=== PATIENT | male | born 1970 | race African-American/Black ===

== ENCOUNTER 2024-09-20 16:16 | Emergency (ER) | payer MEDICAID, OTHER ==
[~2024-09-20] VITALS: Ht 188 cm; Wt 69.3 kg
--- NOTE | 2024-09-20 16:41 | ED.PDOC ---
GI ASSESSMENT HPI Comments A 54 YEAR OLD MALE PRESENTS TO THE ED WITH COMPLAINT OF CONSTIPATION AND ABDOMINAL PAIN. PATIENT STATES HE HAS BEEN EXPERIENCING CONSTIPATION/SMALL AND HARD BOWEL MOVEMENTS WITH OCCASIONAL ABDOMINAL PAIN A RESULT FOR THE PAST 1 WEEK. PATIENT REPORTS HE HAS BEEN TAKING OTC LAXATIVES WITH ONLY MINIMAL IMPROVEMENT. PATIENT DENIES DYSURIA, HEMATURIA, FLANK PAIN, FEVER, CHILLS, SHORTNESS OF BREATH, CHEST PAIN, NAUSEA, VOMITING, HEADACHE, OR OTHER COMPLAINTS. NO OTHER SYMPTOMS OR MODIFYING FACTORS AT THIS TIME. PATIENT IS ALERT, ORIENTED X 4, AND HAS STEADY GAIT. Chief Complaint: CONSTIPATION Time Seen by MD: 17:10 Reviewed Notes: Nurses Notes, Medications, Allergies Allergies: Coded Allergies: NO KNOWN ALLERGIES (Unverified , 09/20/24) Home Meds Active Scripts Losartan Potassium (Losartan Potassium) 50 Mg Tab, 1 TAB PO DAILY for 14 Days, #14 TAB Prov:PHILLIP PRITCHETT 09/20/24 Dicyclomine Hcl (Dicyclomine Hcl) 20 Mg Tab, 1 TAB PO TID, #30 TAB 1 Refill Prov:OLIVER CONTRERAS 09/20/24 Lactulose (Lactulose) 10 Gm/15 Ml Charmaine, 30 ML PO BID, #300 ML Prov:OLIVER CONTRERAS 09/20/24 Information Source: Patient Mode of Arrival: Ambulatory Timing: Days Duration: Since onset, Days Prehospital treatment: None Quality: Aching, Cramping, Colicky Vomitus: None Stool: Minimal Severity: Moderate Recent: None Recent Hx of: None Pain Location: LUQ, LLQ Modifying Factors: Nothing Associated sign and symptoms: Constipation, Abdominal Pain Past Medical History PAST MEDICAL HISTORY: HTN Surgical History: Denies all surgeries Family History Family History: Reviewed,noncontributory to illness Social History Smoker: Non-Smoker Alcohol: Heavy Drugs: Denies Drug Use Lives In: Home Constitutional: denies: chills, diaphoresis, fatigue, fever, malaise, sweats, weakness, others EENTM: denies: blurred vision, double vision, ear bleeding, ear discharge, ear drainage, ear pain, ear ringing, eye pain, eye redness, hearing loss, mouth pain, mouth swelling, nasal discharge, nose bleeding, nose congestion, nose pain, photophobia, tearing, throat pain, throat swelling, voice changes, others Respiratory: denies: cough, hemoptysis, orthopnea, SOB at rest, shortness of breath, SOB with excertion, stridor, wheezing, others Cardiovascular: denies: chest pain, dizzy spells, diaphoresis, Dyspnea on e xertion, edema, irregular heart beat, left arm pain, lightheadedness, palpitations, PND, syncope, others Gastrointestinal: reports: abdominal pain, constipated; denies: abdomen distended, blood streaked bowels, diarrhea, dysphagia, difficulty swallowing, hematemesis, melena, nausea, poor appetite, poor fluid intake, rectal bleeding, rectal pain, vomiting, others Genitourinary: denies: burning, dysuria, flank pain, frequency, hematuria, incontinence, penile discharge, penile sore, pain, testicle pain, testicle swelling, urgency, others Neurological: denies: dizziness, fainting, headache, left sided numbness, left sided weakness, numbness, paresthesia, pre-existing deficit, right sided numbness, right sided weakness, seizure, speech problems, tingling, tremors, weakness, others Musculoskeletal: denies: back pain, gout, joint pain, joint swelling, muscle pain, muscle stiffness, neck pain, others Integumetry: denies: bruises, change in color, change in hair/nails, dryness, laceration, lesions, lumps, rash, wounds, others Allergic/Immunocompromised: denies: Difficulty Healing, Frequent Infections, Hives, Itching, others Hematologic/Lymphatic: denies: anemia, blood clots, easy bleeding, easy bruisin g, swollen glands, others Endocrine: denies: excessive hunger, excessive sweating, excessive thirst, excessive urination, flushing, intolerance to cold, intolerance to heat, unexplained weight gain, unexplained weight loss, others Psychiatric: denies: anxiety, bipolar disorder, depression, hopeless, panic disorder, schizophrenia, sleepless, suicidal, others All Other Systems: Reviewed and Negative Physical Exam General Appearance: No Apparent Distress, Normal HEENT: Normal ENT Inspection, PERRL/EOMI, Pharynx Normal, TMs Normal Neck: Full Range of Motion, Non-Tender, Normal, Normal Inspection Respiratory: Chest Non-Tender, Lungs Clear, No Accessory Muscle Use, No Respiratory Distress, Normal Breath Sounds Cardiovascular: No Edema, No JVD, No Murmur, No Gallop, Normal Peripheral Pulses, Regular Rate/Rhythm Breast Exam: Deferred Gastrointestinal: LLQ, LUQ, No Organomegaly, No Pulsatile Mass, Normal Bowel Sounds, Soft, Tenderness Genitalia: Deferred Pelvic: Deferred Rectal: Deferred Extremities: No calf tenderness, Normal capillary refill, Normal inspection, Normal range of motion, Non-tender, No pedal edema Musculoskeletal : Apperance: Normal Neurologic: Alert, forging press operator II-XII nml as Tested, No Motor Deficits, Normal Affect, Normal Mood, No Sensory Deficits Cerebellar Function: Normal Reflexes: Normal Skin: Dry, Normal Color, Warm Peripheral Pulses: 2+ carotid (R), 2+ carotid (L) Lymphatic: No Adenopathy Was a procedure done? Was a procedure done?: No GI differential Dx Differential Diagnosis: Bowel Obstruction, Constipation, Gastritis/PUD, Gastroenteritis, Inflammatory BD, UTI, Impaction, Kidney Stone X-Ray, Labs, Meds, VS Vital Signs Date Time Temp Pulse Resp B/P (MAP) Pulse Ox O2 Delivery O2 Flow Rate FiO2 09/20/24 19:39 103 20 137/104 (115) 98 09/20/24 19:17 144/128 09/20/24 18:41 98.5 94 20 176/125 (142) 98 98.5 09/20/24 16:54 99.0 93 18 95/55 (68) 97 99.0 Lab Test 09/20/24 18:54 09/20/24 16:35 Range/Units Urine Color Yellow Yellow Urine Clarity Clear Clear Urine pH 6.0 5.0-9.0 Urine Specific [place] 1.033 1.001-1.035 Urine Protein 1+ H Negative Urine Ketones 1+ H Negative Urine Blood Negative Negative /uL Urine Nitrite Negative Negative Urine Bilirubin Negative Negative Urine Urobilinogen Normal Negative mg/dL Urine Leukocyte Esterase Negative Negative /uL Urine RBC 1 0 - 3 /hpf Urine Microscopic WBC 6 H 0-3 /HPF Urine Squamous Epithelial Cells Few <5 /hpf Urine Bacteria None seen None Seen /hpf Urine Mucus Few None Seen Urine Glucose Trace Normal mg/dL White Blood Count 4.7 4.4-10.8 10^3/uL Red Blood Count 5.00 4.5-5.90 10^6/uL Hemoglobin 15.7 13.5-17.5 g/dL Hematocrit 45.4 41.0-53.0 % Mean Corpuscular Volume 90.9 80.0-100.0 fL Mean Corpuscular Hemoglobin 31.5 28.0-32.0 pg Mean Corpuscular Hemoglobin Concent 34.7 32.0-36.0 g/dL Red Cell Distribution Width 13.6 11.8-14.3 % Platelet Count 241 140-450 10^3/uL Mean Platelet Volume 7.9 6.9-10.8 fL Neutrophils (%) (Auto) 61.5 37.0-80.0 % Lymphocytes (%) (Auto) 30.5 10.0-50.0 % Monocytes (%) (Auto) 6.9 0.0-12.0 % Eosinophils (%) (Auto) 0.2 0.0-7.0 % Basophils (%) (Auto) 0.9 0.0-2.0 % Neutrophils # (Auto) 2.9 1.6-8.6 10 ^3/uL Lymphocytes # (Auto) 1.4 0.4-5.4 10 ^3/uL Monocytes # (Auto) 0.3 0-1.3 10 ^3/uL Eosinophils # (Auto) 0 0-0.8 10 ^3/uL Basophils # (Auto) 0 0-0.2 10 ^3/uL Nucleated Red Blood Cells 0.2 % Sodium Level 134 L 136-145 mmol/L Potassium Level 4.0 3.5-5.1 mmol/L Chloride Level 99 98-107 mmol/L Carbon Dioxide Level 28 20-31 mmol/L Anion Gap 7 5-15 Blood Urea Nitrogen 23 9-23 mg/dL Creatinine 1.53 H 0.700-1.30 mg/dL Glomerular Filtration Rate Calc 53 >90 mL/min BUN/Creatinine Ratio 15.0 10.0-20.0 Serum Glucose 142 H 74-106 mg/dL Calcium Level 9.4 8.7-10.4 mg/dL Total Bilirubin 1.7 H 0.2-1.0 mg/dL Aspartate Amino Transferase (AST) 15 13-40 U/L Alanine Aminotransferase (ALT) 18 7-40 U/L Alkaline Phosphatase 53 46-116 U/L Total Protein 7.2 5.7-8.2 g/dL Albumin 4.6 3.2-4.8 g/dL Lipase 40 12-53 U/L Current Medications Medications (Trade) Dose Ordered Sig/Margarita Route Start Time Stop Time Status Last Admin Ketorolac Tromethamine (Toradol Injection) 60 mg ONCE ONCE IM 09/20/24 18:15 09/20/24 18:16 DC 09/20/24 18:33 Lactulose 60 ml ONCE ONCE PO 09/20/24 18:15 09/20/24 18:16 DC 09/20/24 18:34 Clonidine HCl (Catapres Tablet) 0.1 mg ONCE ONCE PO 09/20/24 19:15 09/20/24 19:16 DC 09/20/24 19:17 Indication: LEFT SIDE ABD PAIN WITH CONSTIPATION Technique: CT axial images of the abdomen and pelvis are obtained without contrast. Coronal and sagittal reformats were obtained. Radiation Dose Information: CTDI volume is 5.19 mGy. Dose-length product is 257.12 mGy*cm Comparison: None FINDINGS: There is limited interpretation of the abdomen and pelvis without administration of intravenous contrast. Lung bases demonstrate no pleural effusion. Adrenal glands, spleen, pancreas and liver unremarkable in shape. Gallbladder not well characterized. 2.7 cm left renal cysts. No hydronephrosis/nephrolithiasis. Gastric distention. Small bowel loops are moderately distended. Moderate volume stool in the colon. Appendix not well characterized. Aortic tortuosity. Atherosclerotic calcification disease. Bladder partially distended. No inguinal lymphadenopathy. Moderate bilateral sacroiliitis. Moderate lumbar degenerative disc disease L5- S1. Moderate degenerative changes bilateral hips. IMPRESSION: Limited evaluation without contrast. No hydronephrosis / nephrolithiasis. Moderate volume stool in the colon. Moderate distention small bowel loops could represent ileus. If there is concern for obstruction consider obtaining small-bowel series given limitations of the examination Other findings as described. X-Ray, Labs, Meds, VS Comment EXTERNAL MEDICAL RECORDS: NONE INDEPENDENT HISTORIANS: NONE SOCIAL DETERMINANTS OF HEALTH: NONE LABS ORDERED: CBC, CMP, LIPASE REVIEWED AND INTERPRETED RESULTS: NA 134, CREA2 1.53, GLUC 142, TBI 1.7 IMAGING ORDERED: CT ABD/PEL TREATMENTS ORDERED: TORADOL AND LACTULOSE PATIENT'S CASE AND RESULTS HAVE BEEN DISCUSSED WITH THE ED ATTENDING PHYSICIAN AND THEY AGREE WITH MY PLAN OF CARE. I HAVE DISCUSSED IMAGING AND LAB RESULTS WITH THE PATIENT AND HAVE INSTRUCTED THE PATIENT TO FOLLOW UP WITH THEIR PCP IN 1-2 DAYS. THE PATIENT FULLY UNDERSTANDS THEIR RESULTS AND ARE AWARE THEY NEED TO FOLLOW UP WITH THEIR PCP FOR FURTHER EVALUATION IF THEIR SYMPTOMS PERSIST. Images Reviewed?: Images reviewed and evaluated by me Time of 1ST Reevaluation: 18:24 Reevaluation 1ST: Improved Patient Education/Counseling: Diagnosis, Treatment, Need For Follow Up Family Education/Counseling: Diagnosis, Treatment, Need For Follow Up Medical Screening: No EMC Exist At This Time SEPSIS Sepsis Screen Physician Orders Ct Ab Pel Wo Con-No Oral Or Iv (09/20/24 16:46) Vital Signs Date Time Temp Pulse Resp B/P (MAP) Pulse Ox O2 Delivery O2 Flow Rate FiO2 09/20/24 19:39 103 20 137/104 (115) 98 09/20/24 19:17 144/128 09/20/24 18:41 98.5 94 20 176/125 (142) 98 98.5 09/20/24 16:54 99.0 93 18 95/55 (68) 97 99.0 Laboratory Tests Test 09/20/24 16:35 White Blood Count 4.7 10^3/uL (4.4-10.8) Departure 1 Departure Time of Disposition: 18:30 Impression: Primary Impression: Acute constipation Additional Impression: Renal cyst, left Disposition: HOME / SELF CARE / HOMELESS Condition: Stable Additional Instructions: FOLLOW-UP WITH PCP IN 1 TO 2 DAYS. TAKE MEDICATIONS PRESCRIBED. RETURN TO ED FOR ANY NEW OR WORSENING SYMPTOMS. e-Prescriptions Losartan Potassium (Losartan Potassium) 50 Mg Tab 1 TAB PO DAILY for 14 Days, #14 TAB Prov: PHILLIP PRITCHETT 09/20/24 Dicyclomine Hcl (Dicyclomine Hcl) 20 Mg Tab 1 TAB PO TID, #30 TAB 1 Refill Prov: OLIVER CONTRERAS 09/20/24 Lactulose (Lactulose) 10 Gm/15 Ml Charmaine 30 ML PO BID, #300 ML Prov: OLIVER CONTRERAS 09/20/24 Discharged With: Self, Spouse Critical Care Note Critical Care Time?: No Stability Stability form required: No Heart Score Heart Score: Heart Score Response (Comments) Value History N/A 0 EKG N/A 0 Age N/A 0 Risk Factors N/A 0 Troponin N/A 0 Total 0 I personally scribed for OLIVER CONTRERAS ([email or web address]) on 09/20/24 at 16:41. Electronically submitted by Nathalia Engle ([email or web address]). I personally scribed for OLIVER CONTRERAS PA ([email or web address]) on 09/20/24 at 16:47. Electronically submitted by Nathalia Engle ([email or web address]). I personally scribed for OLIVER CONTRERAS ([email or web address]) on 09/20/24 at 18:03. Electronically submitted by Willi Colon ([email or web address] I personally scribed for OLIVER CONTRERAS ([email or web address]) on 09/20/24 at 18:05. Electronically submitted by Willi Colon ([employer]). I personally scribed for OLIVER CONTRERAS PA ([email or web address]) on 09/20/24 at 18:14. Electronically submitted by Nathalia Engle ([email or web address]). OLIVER CONTRERAS Sep 20, 2024 16:41
[2024-09-20 17:09] LABS: Hematocrit 45.4 % (41.0-53.0); Hemoglobin 15.7 g/dL (13.5-17.5); Mean Corpuscular Hemoglobin 31.5 pg (28.0-32.0); Mean Corpuscular Volume 90.9 fL (80.0-100.0); Nucleated Red Blood Cells % 0.2 %
[2024-09-20 17:29] LABS: Alanine Aminotransferase 18 U/L (7-40); Albumin 4.6 g/dL (3.2-4.8); Alkaline Phosphatase 53 U/L (46-116); Anion Gap 7 (5-15); BUN/Creatinine Ratio 15.0 (10.0-20.0); Calcium 9.4 mg/dL (8.7-10.4); Carbon Dioxide 28 mmol/L (20-31); Chloride 99 mmol/L (98-107); Lipase 40 U/L (12-53); Potassium 4.0 mmol/L (3.5-5.1); Total Protein 7.2 g/dL (5.7-8.2)
[2024-09-20 17:32] LABS: Bilirubin, Total 1.7 mg/dL (0.2-1.0); Blood Urea Nitrogen 23 mg/dL (9-23); Glucose 142 mg/dL (74-106); Sodium 134 mmol/L (136-145)
--- NOTE | 2024-09-20 18:10 | DVH ---
Indication: LEFT SIDE ABD PAIN WITH CONSTIPATION Technique: CT axial images of the abdomen and pelvis are obtained without contrast. Coronal and sagit myriam reformats were obtained. Radiation Dose Information: CTDI volume is 5.19 mGy. Dose-length product is 257.12 mGy*cm Comparison: None FINDINGS: There is limited interpretation of the abdomen and pelvis without administration of intravenous contr ast. Lung bases demonstrate no pleural effusion. Adrenal glands, spleen, pancreas and liver unremarkable in shape. Gallbladder not well characterized. 2.7 cm left renal cysts. No hydronephrosis/nephrolithiasis. Gastric distention. Small bowel loops are moderately distended. Moderate volume stool in the colon. Appendix not well characterized. Aortic tortuosity. Atherosclerotic calcification disease. Bladder partially distended. No inguinal ly mphadenopathy. Moderate bilateral sacroiliitis. Moderate lumbar degenerative disc disease L5-S1. Moderate degenerati ve changes bilateral hips. IMPRESSION: Limited evaluation without contrast. No hydronephrosis / nephrolithiasis. Moderate volume stool in the colon. Moderate distention small bowel loops could represent ileus. If there is concern for obstruction con supply chain tech obtaining small-bowel series given limitations of the examination Other findings as described.
[2024-09-20] MEDS ORDERED: DICY20TA PO (18:23)
[2024-09-20] MEDS ORDERED: LACT10SO3 PO (18:23)
[2024-09-20] MEDS: KETOROLAC TROMETH 60MG/2ML VIAL IM ONE (18:33)
[2024-09-20] MEDS: LACTULOSE 20Gm/30ML SOLN PO ONE (18:34)
[2024-09-20 18:41] VITALS: TEMP 98.5
[2024-09-20 19:10] LABS: Urine Protein, UAD 1+ (Negative)
[2024-09-20 19:39] VITALS: BP 137/104; PULSE 103; RESP 20; O2SAT 98
[2024-09-20] MEDS ORDERED: LOSA-534 PO (20:38)
== END 2024-09-20 20:43 | disposition home or self-care (01) ==
LOC: ER 16:16
DX: K59.00 Constipation, unspecified (principal); N28.1 Cyst of kidney, acquired; I10 Essential (primary) hypertension; Z79.899 Other long term (current) drug therapy
CPT/HCPCS: 36415; 74176; 80053; 81001; 83690; 85025; 96372; 99285; J1885